=== PATIENT | male | born 1935 | race Caucasian/White ===

== ENCOUNTER 2017-05-17 16:59 | Emergency (ER) | payer MEDICARE ==
[~2017-05-17] VITALS: Ht 188 cm; Wt 88.6 kg
[~2017-05-17 16:59] MED LIST: ASPI81 PO; FISH1000 PO; GLUC2.5T7 PO; META800 PO; METF-324 PO; OXYC-360 PO; TAB-TAB PO; ZOCO80TA PO
[2017-05-17 17:05] VITALS: BP 140/71; PULSE 70; RESP 18; TEMP 97.8; O2SAT 100
[2017-05-17] MEDS ORDERED: WARF-18 PO (17:34)
[2017-05-17] MEDS ORDERED: GLIP5TAB8 PO (17:36)
[2017-05-17] MEDS ORDERED: METF1000 PO (17:36)
[2017-05-17] MEDS ORDERED: SIMV80TA PO (17:36)
[2017-05-17] MEDS ORDERED: WARF-23 PO (17:36)
[2017-05-17 17:51] LABS: AUTOMATED NEUTROPHIL # 4.8 TH/MM3 (1.8-7.7); BASOPHIL # 0.1 TH/MM3 (0-0.2); BASOPHIL % 1.4 % (0.0-2.0); EOSINOPHIL # 0.4 TH/MM3 (0-0.4); EOSINOPHIL % 5.5 % (0.0-4.0); HEMATOCRIT 38.3 % (39.0-51.0); HEMO FLAGS DIFF FINAL; LYMPH % 19.9 % (9.0-44.0); LYMPHOCYTE # 1.5 TH/MM3 (1.0-4.8); MEAN CORPUSCULAR HEMOGLOBIN 33.3 PG (27.0-34.0); MEAN CORPUSCULAR HGB CONC 33.9 % (32.0-36.0); MONO % 11.1 % (0.0-8.0); NEUT % 62.1 % (16.0-70.0); PLATELET COUNT 182 TH/MM3 (150-450); RED CELL DISTRIBUTION WIDTH 12.7 % (11.6-17.2); WHITE BLOOD COUNT 7.7 TH/MM3 (4.0-11.0)
[2017-05-17] MEDS ORDERED: AMOX875T PO (17:59)
[2017-05-17] MEDS ORDERED: AMOXICILLIN 875 MG TAB PO ONE (18:00)
[2017-05-17 18:03] LABS: APTT (PATIENT) 45.6 SEC (24.3-30.1); INTERNATIONAL NORMALIZED RATIO 2.3 RATIO; PROTHROMBIN TIME - PATIENT 26.8 SEC (9.8-11.6)
--- NOTE | 2017-05-17 18:04 | PD ---
HPI Chief Complaint: Bleeding Time Seen by Provider: 18:00 Travel History International Travel<30 days: No Contact w/Intl Traveler<30days: No Traveled to known affect area: No History of Present Illness HPI 82-year-old male that presents to the ED for evaluation of bleeding from the left side of the upper gum. Patient reports that he had dental procedure done 3 days ago secondary to wisdom tooth removal. Per patient he had a wisdom to remove actually a week ago and then he had a revision on as apparently he had an injury to the maxillary plate that for some reason he requires a follow-up with the oral surgeon. Somewhat unclear of the history but he did had some dental procedure on . Patient states that ever since he's been off of his Coumadin and he is noted that he had some bleeding. Per patient he was told to put gauze on his mouth to stop the bleeding. Per patient the bleeding itself is not bad but he is noted a lot especially when he takes of the gauze. Patient denies any pain with it. No chest pain. No fevers chills or sweats. No other bleeding reported. Patient comes here to get evaluated because he is concerned about the bleeding. 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) Social History Alcohol Use: No Tobacco Use: No Substance Use: No Allergies-Medications (Allergen,Severity, Reaction): Coded Allergies: No Known Allergies (Verified , 05/17/17) Reported Meds & Prescriptions Reported Meds & Active Scripts Active Amoxicillin 875 Mg Tab 875 Mg PO BID 10 Days Reported Simvastatin 80 Mg Tab 80 Mg PO HS Metformin (Metformin HCl) 1,000 Mg Tab 1,000 Mg PO BIDPC With meals Glipizide 5 Mg Tab 2.5 Mg PO BIDAC Take 30 minutes before a meal Warfarin 5 Mg Tab 5 Mg PO ,, Warfarin 2.5 Mg Tab 2.5 Mg PO ,,,HASKINS Review of Systems Except as stated in HPI: all other systems reviewed are Neg Physical Exam Narrative GENERAL: SKIN: Warm and dry. HEAD: Atraumatic. Normocephalic. EYES: Pupils equal and round. No scleral icterus. No injection or drainage. ENT: No nasal bleeding or discharge. Mucous membranes pink and moist. Tongue is midline. No uvula deviation. Dental: Patient has no upper teeth. Patient does have what appears to be a surgical opening on the upper most proximal part of the left upper mouth. There is what appears to be yellow/greenish and bloody discharge from this area. No obvious abscess noted. No obvious red blood other than the blood on the discharge. NECK: Trachea midline. No JVD. CARDIOVASCULAR: Regular rate and rhythm. RESPIRATORY: No accessory muscle use. Clear to auscultation. Breath sounds equal bilaterally. GASTROINTESTINAL: Abdomen soft, non-tender, nondistended. Hepatic and splenic margins not palpable. MUSCULOSKELETAL: Extremities without clubbing, cyanosis, or edema. No obvious deformities. NEUROLOGICAL: Awake and alert. No obvious cranial nerve deficits. Motor grossly within normal limits. Five out of 5 muscle strength in the arms and legs. Normal speech. PSYCHIATRIC: Appropriate mood and affect; insight and judgment normal. Data Data Last Documented VS Vital Signs Date Time Temp Pulse Resp B/P Pulse Ox O2 Delivery O2 Flow Rate FiO2 05/17/17 17:05 97.8 70 18 140/71 100 Orders Complete Blood Count With Diff (05/17/17 17:30) Prothrombin Time / Inr (Pt) (05/17/17 17:30) Act Partial Throm Time (Ptt) (05/17/17 17:30) Amoxicillin (Trimox) (05/17/17 18:00) Wound Culture And Gram Stain (05/17/17 17:49) Labs Laboratory Tests Test 05/17/17 17:40 White Blood Count 7.7 TH/MM3 Red Blood Count 3.90 MIL/MM3 Hemoglobin 13.0 GM/DL Hematocrit 38.3 % Mean Corpuscular Volume 98.0 FL Mean Corpuscular Hemoglobin 33.3 PG Mean Corpuscular Hemoglobin 33.9 % Concent Red Cell Distribution Width 12.7 % Platelet Count 182 TH/MM3 Mean Platelet Volume 7.5 FL Neutrophils (%) (Auto) 62.1 % Lymphocytes (%) (Auto) 19.9 % Monocytes (%) (Auto) 11.1 % Eosinophils (%) (Auto) 5.5 % Basophils (%) (Auto) 1.4 % Neutrophils # (Auto) 4.8 TH/MM3 Lymphocytes # (Auto) 1.5 TH/MM3 Monocytes # (Auto) 0.9 TH/MM3 Eosinophils # (Auto) 0.4 TH/MM3 Basophils # (Auto) 0.1 TH/MM3 CBC Comment DIFF FINAL Differential Comment Prothrombin Time 26.8 SEC Prothromb Time International 2.3 RATIO Ratio Activated Partial 45.6 SEC Thromboplast Time MDM Medical Decision Making Medical Screen Exam Complete: Yes Emergency Medical Condition: Yes Medical Record Reviewed: Yes Interpretation(s) CBC Diagram 05/17/17 17:40 coags showed elevated INR of 2.3 Differential Diagnosis Abscess versus dental infection versus postprocedure infection versus wound infection versus bleeding Narrative Course 82-year-old male that presents to the ED for evaluation of left upper jaw bleeding. Patient was properly examined and was found to have signs and symptoms which appeared to actually be consistent with infection of the wound. There is minor bleeding from the area of most of it comes with yellow greenish discharge. I believe the patient likely has an infection. Possibly causing the bleeding. Patient has been off his Coumadin so unlikely this is an active bleeding. I believe that likely an infection is was causing the bleeding. Patient does need to follow with an oral surgeon. At this time labs were done to make sure patient does have a coagulopathy. Labs and imaging showed INR of 2.3. Patient still therapeutic. Patient again does not have any active bleeding at this time and I believe that the bleeding is likely more related to infection. I will treat patient with amoxicillin. Recommend close follow with your surgeon. See ED for any worsening symptoms. Pressure dressing was applied by patient. Diagnosis Primary Impression: Wound infection Referrals: Abdoulaye English DMD Patient Instructions: General Instructions Additional Instructions: Take antibiotic as prescribed. Follow with PCP. See ED worsening symptoms. Ice or warm compresses to the area as needed. Follow with oral surgeon. Med/Other Pt SpecificInfo: Prescription(s) given Scripts Amoxicillin 875 Mg [id number] Mg PO BID 10 Days Prov:Cary Meyers MD 05/17/17 Disposition: 01 DISCHARGE HOME Condition: Stable Richy Feng May 17, 2017 18:04
== END 2017-05-17 18:51 | disposition home or self-care (01) ==
LOC: PHEFT 16:59
DX: T81.4XXA Infection following a procedure, initial encounter (principal); M27.2 Inflammatory conditions of jaws; B96.89 Other specified bacterial agents as the cause of diseases classified elsewhere; B95.4 Other streptococcus as the cause of diseases classified elsewhere; E11.9 Type 2 diabetes mellitus without complications; E78.00 Pure hypercholesterolemia, unspecified; Z98.890 Other specified postprocedural states; Z79.84 Long term (current) use of oral hypoglycemic drugs; Z79.01 Long term (current) use of anticoagulants; Z86.79 Personal history of other diseases of the circulatory system
CPT/HCPCS: 85025; 85610; 85730; 87070; 87077; 87186; 87205; 99283